=== PATIENT | female | born 1950 | race Caucasian/White ===

== ENCOUNTER → 2023-05-06 18:39 | Outpatient (REF) | payer OTHER, SELFPAY | LOC: PAVMRI 18:39 | PROVIDERS: ATTENDING PHYSICIAN Internal Medicine; FAMILY PHYSICIAN Internal Medicine Rheumatology | DX: M25.569 Pain in unspecified knee (principal) | CPT/HCPCS: 73721 ==

== ENCOUNTER → 2023-11-26 09:19 | Outpatient (REF) | payer OTHER, SELFPAY | LOC: HWRAD 09:19 | PROVIDERS: ATTENDING PHYSICIAN Internal Medicine Gastroenterology; FAMILY PHYSICIAN Internal Medicine | DX: R10.10 Upper abdominal pain, unspecified (principal) | CPT/HCPCS: 76700 ==

== ENCOUNTER → 2024-03-02 09:56 | Outpatient (REF) | payer OTHER, SELFPAY | LOC: HWWDC 09:56 | PROVIDERS: ATTENDING PHYSICIAN Internal Medicine | DX: Z12.31 Encounter for screening mammogram for malignant neoplasm of breast (principal); M81.0 Age-related osteoporosis without current pathological fracture | CPT/HCPCS: 77063; 77067; 77080 ==

== ENCOUNTER → 2024-05-08 12:26 | Outpatient (REF) | payer OTHER, SELFPAY | LOC: MRI 3T 12:26 | PROVIDERS: FAMILY PHYSICIAN Internal Medicine | DX: M54.12 Radiculopathy, cervical region (principal) | CPT/HCPCS: 72141 ==